=== PATIENT | male | born 1965 | race Caucasian/White ===

== ENCOUNTER → 2022-08-11 08:34 | Outpatient (CLI) | payer OTHER, SELFPAY ==
[2022-08-11 19:32] LABS: Hematocrit 39.9 % (41-53); Hemoglobin 13.7 g/dL (13.5-17.5); Mean Corpuscular HGB Conc 34.3 % (30-36); Mean Corpuscular Hemoglobin 32.7 PG (26-34); Mean Corpuscular Volume 95.1 fL (80-100); Platelet Count 260 X10^3/uL (150-400); Red Cell Distribution Width 13.5 % (11.6-14.8); White Blood Cell Count 5.8 X10^3/uL (4.5-11.0)
[2022-08-11 19:45] LABS: Alanine Aminotransferase 37 IU/L (<50); Albumin 4.4 g/dL (3.5-5.0); Albumin Globulin Ratio 1.5 (1.0-2.8); Alkaline Phosphatase 55 U/L (38-126); Aspartate Aminotransferase 36 IU/L (17-59); BUN Creatinine Ratio 17.3 (6-22); Bilirubin Total 0.6 mg/dL (0.2-1.3); Blood Urea Nitrogen 14 mg/dL (9-20); Calcium 9.3 mg/dL (8.4-10.2); Carbon Dioxide 28 mmol/L (22-32); Chloride 101 mmol/L (98-107); Cholesterol 260 mg/dL (140-199); Estimated Glomerular Filt Rate > 60 mL/min (>60); Globulin 2.9 g/dL (1.7-4.1); Glucose 99 mg/dL (70-100); HDL Cholesterol 40 mg/dL (40-60); HEMOLYSIS < 15 (0-50); LDL Cholesterol Calculated 164 mg/dL (<100); Potassium 4.6 mmol/L (3.4-5.1); Sodium 136 mmol/L (137-145); Total Protein 7.3 g/dL (6.3-8.2); Triglycerides 278 mg/dL (35-150)
[2022-08-11 20:09] LABS: Prostate Specific Antigen Scrn 0.478 ng/mL (0.1-4.0)
[2022-08-11 20:19] LABS: Neutrophils Absolute Manual 1972 /uL (3000-5900); Total Cells Counted 100
[2022-08-11 20:30] LABS: RBC Morphology Normal Morphology
== END ==
PROVIDERS: PCP Physician Assistant; Visit Provider Physician Assistant
DX: Z01.812 Encounter for preprocedural laboratory examination (principal); K43.9 Ventral hernia without obstruction or gangrene; K42.9 Umbilical hernia without obstruction or gangrene; Z13.6 Encounter for screening for cardiovascular disorders; Z12.5 Encounter for screening for malignant neoplasm of prostate
CPT/HCPCS: 80053; 80061; 85025; G0103

== ENCOUNTER → 2022-10-05 09:05 | Outpatient (CLI) | payer OTHER, SELFPAY ==
[2022-10-05 19:51] LABS: Add Manual Diff / Slide Review NO; Basophils Absolute Auto 0 /uL (0-100); Basophils Percent Auto 0.8 % (0-2); Eosinophils Absolute Auto 100 /uL (0-450); Eosinophils Percent Auto 1.7 % (2-4); Hematocrit 38.7 % (41-53); Hemoglobin 13.4 g/dL (13.5-17.5); Lymphocytes Absolute Auto 2500 /uL (1100-4500); Lymphocytes Percent Auto 45.3 % (25-40); Mean Corpuscular HGB Conc 34.7 % (30-36); Mean Corpuscular Hemoglobin 32.8 PG (26-34); Mean Corpuscular Volume 94.3 fL (80-100); Monocytes Absolute Auto 600 /uL (0-900); Monocytes Percent Auto 11.1 % (3-14); Neutrophils Absolute Auto 2200 /uL (1500-7000); Neutrophils Percent Auto 41.1 % (50-75); Platelet Count 264 X10^3/uL (150-400); Red Cell Distribution Width 13.3 % (11.6-14.8); White Blood Cell Count 5.4 X10^3/uL (4.5-11.0)
[2022-10-05 19:52] LABS: HEMOLYSIS < 15 (0-50); Iron 93 ug/dL (49-181)
[2022-10-05 20:02] LABS: Cholesterol 227 mg/dL (140-199); HDL Cholesterol 33 mg/dL (40-60); LDL Cholesterol Calculated 148 mg/dL (<100); Triglycerides 231 mg/dL (35-150)
[2022-10-05 20:03] LABS: Percent Iron Saturation 31 % (20-50); Total Iron Binding Capacity 302 ug/dL (261-462); Transferrin 212 mg/dL (206-381)
[2022-10-05 20:38] LABS: Ferritin 230 ng/mL (18-464)
[2022-10-05 21:10] LABS: Folate > 20.0 ng/mL (2.76-20.0); Vitamin B12 305 pg/mL (239-931)
== END ==
PROVIDERS: PCP Physician Assistant; Visit Provider Physician Assistant
DX: D64.9 Anemia, unspecified (principal); E78.5 Hyperlipidemia, unspecified
CPT/HCPCS: 80061; 82607; 82728; 82746; 83540; 83550; 85025

== ENCOUNTER → 2023-03-22 13:55 | Outpatient (CLI) | payer OTHER, SELFPAY ==
[2023-03-22 19:28] LABS: Add Manual Diff / Slide Review NO; Basophils Absolute Auto 0 /uL (0-100); Basophils Percent Auto 0.7 % (0-2); Eosinophils Absolute Auto 100 /uL (0-450); Eosinophils Percent Auto 1.6 % (2-4); Hematocrit 39.3 % (41-53); Hemoglobin 14.1 g/dL (13.5-17.5); Lymphocytes Absolute Auto 3100 /uL (1100-4500); Lymphocytes Percent Auto 47.2 % (25-40); Mean Corpuscular HGB Conc 35.8 % (30-36); Mean Corpuscular Hemoglobin 33.9 PG (26-34); Mean Corpuscular Volume 94.6 fL (80-100); Monocytes Absolute Auto 600 /uL (0-900); Monocytes Percent Auto 9.6 % (3-14); Neutrophils Absolute Auto 2700 /uL (1500-7000); Neutrophils Percent Auto 40.9 % (50-75); Platelet Count 280 X10^3/uL (150-400); Red Blood Cell Count 4.15 X10^6/uL (4.5-5.9); Red Cell Distribution Width 13.9 % (11.6-14.8); White Blood Cell Count 6.6 X10^3/uL (4.5-11.0)
== END ==
PROVIDERS: PCP Physician Assistant; Visit Provider Physician Assistant
DX: D64.9 Anemia, unspecified (principal)
CPT/HCPCS: 85025

== ENCOUNTER 2024-04-05 07:07 | Day surgery (SDC) | payer BC, SELFPAY ==
[2024-04-05 07:39] VITALS: BP 129/84; PULSE 61; RESP 17; TEMP 36.1; O2SAT 99
--- NOTE | 2024-04-05 08:17 | PM.HP.1 ---
History of Present Illness History of Present Illness Date Patient Seen: 04/05/24 Time Patient Seen: 08:17 Chief complaint: Screening Colonoscopy Narrative: Brenton is a 58-year-old man who is here for a colonoscopy. His last colonoscopy was 10 years ago and was normal. No family history of colon cancer. [facility], LAT[facility] Medical History Diplopia Fractures Tinnitus (~1979) Surgical History Anesthesia History of eye surgery (~1997) Family History Father Age: 86 Cancer Stroke Mother Age: 86 Mental health problem Grandfather Cancer Sarcoma Grandmother History of heart disease Social History Smoking Status: Former smoker alcohol intake: current Meds Home Medications and Allergies Allergies Allergy/AdvReac Type Severity Reaction Status Date / Time No Known Drug Allergies Allergy Verified 12/07/23 14:25 Exam Vital Signs (past 8 hours): - 04/05/24 07:39 Temperature 96.9 F L Pulse Rate 61 Respiratory Rate 17 Blood Pressure 129/84 Pulse Oximetry 99 Oxygen Delivery Method Room Air Oxygen Delivery Method Room Air Const General: healthy appearing Assessment & Plan Assessment and plan (1) Colon cancer screening: Status: Acute Plan We reviewed the risks and benefits of colonoscopy and he would like to proceed. Time-Based Coding :: [TOTAL MINUTES] spent with patient and on the chart (including review of chart, obtaining history, exam, reviewing outside data, placing orders, documenting exam and treatment plan, and counseling patient) on [DATE].
--- NOTE | 2024-04-05 08:55 | PM.OP.COLON ---
Operative Date/Time/Diagnoses Date of procedure: 04/05/24 Time of procedure: 08:55 Pre-op diagnosis: Colon cancer screening Post-op diagnosis: same Procedure & Clinicians Study performed: Colonoscopy Same procedure as scheduled: Yes Surgeon: Benny Rivas Procedure Notes Procedure in detail: Surgeon: Benny Rivas MD Anesthesia: Josh Mckinney CRNA Procedure: The patient was brought to the endoscopy suite, placed in left lateral decubitus position. The patient was connected to monitoring devices. A time-out was performed. Sedation was administered. Once the patient was adequately sedated, a digital rectal exam was performed and was normal. The scope was then inserted and advanced to the cecum where the appendiceal orifice was identified and photographed. The scope was then slowly withdrawn over greater than 6 minutes. The mucosa was thoroughly inspected. There was pandiverticulosis greatest in the sigmoid colon. There was a small lipoma like structure extrinsic to the mucosa of the descending colon. The scope was retroflexed in the rectum. No other abnormalities were seen. The scope was straightened and removed. The patient was awakened and brought to recovery. Scope withdrawal time: 6 minutes Sedation time: 15 minutes EBL: 0 Findings: Pandiverticulosis, descending colon lipoma Post-procedure Recommendations: Colonoscopy in 10 years Disposition: PACU
[2024-04-05 08:57] VITALS: BP 107/79; PULSE 71; RESP 13; TEMP 36.2; O2SAT 96
[2024-04-05 09:03] VITALS: BP 118/84; PULSE 71; RESP 12; TEMP 36.2; O2SAT 96
[2024-04-05 09:08] VITALS: BP 119/80; PULSE 63; RESP 13; TEMP 36.2; O2SAT 97
== END 2024-04-05 09:23 | disposition home or self-care (01) ==
PROVIDERS: PCP Physician Assistant; Referring Provider Surgery; Visit Provider Surgery
PROC: 0DJD8ZZ Inspection of Lower Intestinal Tract, Via Natural or Artificial Opening Endoscopic (ICD-10-PCS; CPT 45378; principal; 2024-04-05 08:15)
DX: Z12.11 Encounter for screening for malignant neoplasm of colon (principal); K57.30 Diverticulosis of large intestine without perforation or abscess without bleeding; D17.79 Benign lipomatous neoplasm of other sites
CPT/HCPCS: 45378; J2704